=== PATIENT | male | born 1960 | race Two or more races ===

== ENCOUNTER 2018-07-13 03:31 | Emergency (ER) | payer OTHER ==
[~2018-07-13] VITALS: Ht 190.5 cm; Wt 105.7 kg
[2018-07-13 03:35] VITALS: Ht 190.5 cm; Wt 105.7 kg
[2018-07-13 08:29] VITALS: BP 125/81
== END 2018-07-13 08:29 | disposition home or self-care (01) ==
LOC: ED 03:31
DX: J06.9 Acute upper respiratory infection, unspecified (principal)
CPT/HCPCS: 87804